=== PATIENT | female | born 1935 | race Caucasian/White ===

== ENCOUNTER 2019-10-18 07:03 | Day surgery (SDC) | payer MEDICARE ==
[2019-10-15 12:46] VITALS: BMI 24.3
[2019-10-18 08:20] LABS: Hemoglobin 13.3 g/dL (12.0-16.0); Mean Corpuscular HGB CONC 33.3 g/dL (32.0-36.0); Mean Corpuscular Hemoglobin 32.7 pg (27.0-31.0); Mean Corpuscular Volume 98.2 fL (78.0-98.0); Mean Platelet Volume 6.9 fL (7.4-10.4); Platelet Count 320 thou/uL (130-400); RBC Distribution Width 11.3 % (11.5-14.5); Red Blood Cell (RBC) Count 4.08 mill/uL (4.20-5.40); White Blood Cell (WBC) Count 5.5 thou/uL (4.8-10.8)
[2019-10-18 08:33] LABS: Anion Gap 10 mmol/L (10-20); BUN (Urea Nitrogen) 9 mg/dL (9.8-20.1); Calc. Creatinine Clearance 56 mL/min (70-130); Calcium 9.1 mg/dL (7.8-10.44); Carbon Dioxide 31 mmol/L (23-31); Chloride 105 mmol/L (98-107); Estimated GFR-MDRD 74; Glucose 92 mg/dL (83-110); Potassium 4.1 mmol/L (3.5-5.1); Sodium 142 mmol/L (136-145)
[2019-10-18] MEDS ORDERED: PROPOFOL 200 MG/20 ML VIAL ONE (09:13)
[2019-10-18] MEDS ORDERED: Dexamethasone 20 MG/5 ML VIAL ONE (09:13)
[2019-10-18] MEDS ORDERED: Rocuronium Bromide 10 MG/ML (10ML VIAL) ONE (09:13)
[2019-10-18] MEDS ORDERED: Glycopyrrolate 0.2 MG/ML 5 ML SYRINGE ONE (09:13)
[2019-10-18] MEDS ORDERED: Lidocaine 1% PF 5 ML VIAL ONE (09:13)
[2019-10-18] MEDS ORDERED: Ondansetron PF 4 MG/2 ML Vial ONE (09:13)
[2019-10-18] MEDS ORDERED: EPHEDRINE 25 MG/5 ML SYRINGE ONE (09:13)
[2019-10-18] MEDS ORDERED: Fentanyl 100 MCG/2 ML VIAL ONE ×3 (12:00→13:27)
--- NOTE | 2019-10-18 16:16 | OP ---
DATE OF PROCEDURE: 10/18/2019 [employer]ORAGE BATTERY INSPECTOR: Ashly Cornell PA-C PROCEDURE PERFORMED: Right L5 foraminotomy. DESCRIPTION OF PROCEDURE: The patient was brought to the operating room and intubated. She was rolled in a prone position on gel-filled chest rolls. An incision made exposing the L5-S1 and level was confirmed by x-ray. We performed a right L5-S1 laminectomy, facetectomy, and foraminotomy. We identified the right L5 nerve root and completely debrided the facet arthropathy and completely decompressed the right L5 nerve root. The wound was then extensively irrigated. MAC hemostasis was secured. The wound was closed in anatomic layers. Job ID: [id number]
--- NOTE | 2019-10-18 16:44 | EKG ---
Test Reason : PREOP Blood Pressure : / mmHG Vent. Rate : 057 BPM Atrial Rate : 057 BPM P-R Int : 222 ms QRS Dur : 074 ms QT Int : 436 ms P-R-T Axes : 045 023 027 degrees QTc Int : 424 ms Sinus bradycardia with 1st degree A-V block ST elevation, consider early repolarization Otherwise normal ECG Confirmed by ÁNGELA PAULINO ([id number]) on 10/18/2019 4:44:05 PM Referred By: CORINA Confirmed By:ÁNGELA PAULINO
== END 2019-10-18 15:30 | disposition home or self-care (01) ==
LOC: SDC 07:03
PROVIDERS: ATTEND Neurological Surgery
PROC: 01NB0ZZ Release Lumbar Nerve, Open Approach (ICD-10-PCS; principal; 2019-10-18)
DX: M47.26 Other spondylosis with radiculopathy, lumbar region (principal); M48.061 Spinal stenosis, lumbar region without neurogenic claudication; I10 Essential (primary) hypertension; E78.5 Hyperlipidemia, unspecified; K21.9 Gastro-esophageal reflux disease without esophagitis; E07.9 Disorder of thyroid, unspecified; Z79.82 Long term (current) use of aspirin; Z79.899 Other long term (current) drug therapy; Z88.0 Allergy status to penicillin
CPT/HCPCS: 36415; 76000; 80048; 85027; 93005; 93010; J0690; J1100; J2001; J2405; J2704; J3010; J3370; J3490